=== PATIENT | male | born 1970 | race American Indian/Alaskan Native ===

== ENCOUNTER 2017-02-20 21:19 | Emergency (ER) | payer OTHER ==
[2017-02-20 21:26] VITALS: RESP 18
[2017-02-20] MEDS ORDERED: Tetanus/Diphtheria Toxoids 0.5 ml Syringe IM ONE ×2 (21:33→21:44)
[2017-02-20] MEDS ORDERED: Sodium Chloride 0.9% 1,000 ML IV ONE (21:33)
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
[2017-02-20] MEDS ORDERED: Sodium Chloride 0.9% 1,000 ML ONE (21:44)
[2017-02-20] MEDS ORDERED: Lidocaine 2% w Epi 1:100,000 Inj IJ ONE (21:46)
[2017-02-20 22:07] LABS: BASO # 0.1 K/uL (0.0-0.2); EOS # 0.1 K/uL (0.0-0.7); EOS % 1.6 % (0.0-4.0); HEMATOCRIT 38.8 % (35.0-51.0); LYMPH # 3.4 K/uL (1.0-4.3); LYMPH % 50.1 % (20.0-40.0); MEAN CELL VOLUME 86.8 fL (80.0-94.0); MEAN CORPUSCULAR HEMOGLOBIN 29.2 pg (27.0-31.0); MEAN CORPUSCULAR HGB CONC 33.6 g/dL (33.0-37.0); MEAN PLATELET VOLUME 7.6 fL (7.2-11.7); MONO # 0.6 K/uL (0.0-0.8); MONO % 8.2 % (0.0-10.0); RED CELL DISTRIBUTION WIDTH 14.2 % (11.5-14.5); WHITE BLOOD COUNT 6.8 K/uL (4.8-10.8)
[2017-02-20] MEDS ORDERED: ceFAZolin 1 gm FROZEN Premix 1 GM/50 ML ML IVPB ONE (22:08)
[2017-02-20 22:11] LABS: CHLORIDE 107 mmol/L (98-107)
[2017-02-20 22:12] LABS: POTASSIUM 3.5 mmol/L (3.6-5.2); SODIUM 141 mmol/L (132-148)
[2017-02-20 22:14] LABS: ALB/GLOB RATIO 1.2 (1.0-2.1); AST/SGOT 27 U/L (17-59); BILIRUBIN,TOTAL 0.7 mg/dL (0.2-1.3); CARBON DIOXIDE 23 mmol/L (22-30); GFR AFRICAN-AMERICAN > 60; TOTAL PROTEIN 6.9 g/dL (6.3-8.3)
[2017-02-20 22:15] LABS: ALKALINE PHOSPHATASE 64 U/L (38-126); ALT/SGPT 46 U/L (21-72); BLOOD UREA NITROGEN 17 mg/dL (9-20); CALCIUM 8.8 mg/dl (8.6-10.4); GLUCOSE,RANDOM 125 mg/dL (75-110)
[2017-02-20] MEDS ORDERED: Bacitracin 500 Units/gm Oint Foilpak UD ONE (22:20)
[2017-02-20] MEDS ORDERED: ceFAZolin 1 MG in Sodium Chloride 0.9% 50 ML IVPB STA (22:20)
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
[2017-02-20 23:39] VITALS: O2SAT 98
[2017-02-21 02:07] VITALS: BP 131/82; PULSE 76; TEMP 98.8
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
--- NOTE | 2017-02-22 19:03 | CARD ---
APPROVED REPORT EKG Measurement Heart [id number] <Conclusion> Normal sinus rhythm Normal ECG
== END 2017-02-21 02:13 | disposition short-term general hospital (02) ==
LOC: C.ER 21:19
DX: S21.111A Laceration without foreign body of right front wall of thorax without penetration into thoracic cavity, initial encounter (principal); S36.113A Laceration of liver, unspecified degree, initial encounter; S41.112A Laceration without foreign body of left upper arm, initial encounter; X99.1XXA Assault by knife, initial encounter
CPT/HCPCS: 12002; 71010; 71260; 74160; 80053; 85025; 85610; 85730; 86850; 86900; 90471; 90714; 93005; 96365; 99285; J0690; J7040; Q9967